=== PATIENT | male | born 1965 | race Caucasian/White ===

== ENCOUNTER → 2017-05-29 | Outpatient (CLI) | payer MEDICARE, MEDICAID ==
[~2017-05-29] VITALS: Ht 170.2 cm; Wt 100.7 kg
[~2017-05-29] MED LIST: BUSP10TA PO; CELE40TA PO; DEBR6.5S4 AU; LIDOCAINE 2% INJ 100 MG/5 ML SDV (FOR ANES.) As Ordered ONE; MIRA33504 PO; NS 1,000 ML IV ONE; PROPOFOL 500 MG/50 ML VIAL As Ordered ONE; RISP1TAB42 PO; SENN8.6C PO
--- NOTE | 2017-05-29 12:48 | ROOR ---
Patient Name: Santiago Escalera Procedure Date: 05/29/2017 12:08 PM Date of : 1965 Age: 52 Room: [facility] Gender: Male Note Status: Finalized Procedure: Colonoscopy Indications: Screening for colorectal malignant neoplasm Providers: Rory LOPEZ MD Referring MD: David Greenberg MD Requesting Provider: Medicines: Monitored Anesthesia Care Complications: No immediate complications. Procedure: Pre-Anesthesia Assessment: - The heart rate, respiratory rate, oxygen saturations, blood pressure, adequacy of pulmonary ventilation, and response to care were monitored throughout the procedure. The Colonoscope was introduced through the anus and advanced to the cecum, identified by appendiceal orifice and ileocecal valve. The colonoscopy was performed without difficulty. The patient tolerated the procedure well. The quality of the bowel preparation was good. Findings: The perianal and digital rectal examinations were normal. Two semi-pedunculated polyps were found in the sigmoid colon. The polyps were 4 to 6 mm in size. These polyps were removed with a cold snare. Resection and retrieval were complete. To prevent bleeding after the polypectomy, two hemostatic clips were successfully placed. There was no bleeding at the end of the procedure. The exam was otherwise without abnormality on direct and retroflexion views. Impression: - Two 4 to 6 mm polyps in the sigmoid colon, removed with a cold snare. Resected and retrieved. Clips were placed. - The colon examination was otherwise normal on direct and retroflexion views. Recommendation: - Repeat colonoscopy in 3 years for surveillance. Rory Lopez MD Rory LOPEZ MD 05/29/2017 12:47:40 PM This report has been signed electronically. Number of Addenda: 0 Note Initiated On: 05/29/2017 12:08 PM Estimated Blood Loss: Estimated blood loss: none.
[2017-05-29 13:10] VITALS: BP 150/85
== END | disposition home or self-care (01) ==
LOC: M OPP 11:01
PROVIDERS: ATTEND Internal Medicine Gastroenterology
DX: Z12.11 Encounter for screening for malignant neoplasm of colon (principal); D12.5 Benign neoplasm of sigmoid colon; F32.9 Major depressive disorder, single episode, unspecified; F41.9 Anxiety disorder, unspecified; G80.9 Cerebral palsy, unspecified; F79 Unspecified intellectual disabilities; Z79.899 Other long term (current) drug therapy; Z80.0 Family history of malignant neoplasm of digestive organs

== ENCOUNTER → 2017-09-19 | Outpatient (REF) | payer MEDICARE, MEDICAID ==
[~2017-09-19] MED LIST changes: -LIDOCAINE 2% INJ 100 MG/5 ML SDV (FOR ANES.) As Ordered ONE; -NS 1,000 ML IV ONE; -PROPOFOL 500 MG/50 ML VIAL As Ordered ONE
== END ==
LOC: M SFHCCLAY 09:13
PROVIDERS: ATTEND Family Medicine
DX: Z80.0 Family history of malignant neoplasm of digestive organs (principal); E78.00 Pure hypercholesterolemia, unspecified; Z53.9 Procedure and treatment not carried out, unspecified reason

== ENCOUNTER 2019-02-22 19:49 | Inpatient (IN) | payer MEDICARE, MEDICAID ==
[~2019-02-22] VITALS: Ht 167.6 cm; Wt 113.2 kg
--- NOTE | 2019-02-22 22:12 | REPVR ---
EXAM: US Duplex Right Lower Extremity Veins, Limited EXAM DATE/TIME: 02/22/2019 9:31 PM CLINICAL HISTORY: 53 years old, male; Signs and symptoms; Swelling (edema) of limb; Lower extremity, right; Additional info: R/O dvt TECHNIQUE: Imaging protocol: Real-time Duplex ultrasound of the Right Lower Extremity with 2-D keita scale, color Doppler flow and spectral waveform analysis. Limited exam was focused on the right lower extremity veins. COMPARISON: No relevant prior studies available. FINDINGS: Right deep veins: Hypoechoic, nonocclusive thrombus in the distal femoral vein, becoming occlusive in the popliteal vein. The common femoral and proximal to mid femoral veins are patent without thrombus. Right superficial veins: Unremarkable. Saphenofemoral junction is patent without thrombus. Soft tissues: Unremarkable. IMPRESSION: Hypoechoic, nonocclusive thrombus in the distal femoral vein, becoming occlusive in the popliteal vein. Electronically signed by: Gildardo Turk On 02/22/2019 22:12:44 PM
[2019-02-22 23:16] LABS: HEMATOCRIT 43.4 % (42.0-52.0); HEMOGLOBIN 13.9 g/dl (13.5-17.5); MEAN CORPUSCULAR HEMOGLOBIN 29.2 pg (27.0-33.0); MEAN CORPUSCULAR VOLUME 91.2 fl (80.0-96.0); PLATELET COUNT, AUTOMATED 252 10^3/uL (150-450); RED BLOOD COUNT 4.76 10^6/uL (4.30-6.10); WHITE BLOOD COUNT 9.1 10^3/uL (4.0-10.0)
[2019-02-22 23:26] LABS: INR 0.99; PARTIAL THROMBOPLASTIN TIME 27.9 SECONDS (25.4-37.6); PROTHROMBIN TIME 13.2 SECONDS (12.1-14.4)
[2019-02-22 23:27] LABS: BLOOD UREA NITROGEN 13 MG/DL (7-18); CALCIUM LEVEL 8.5 MG/DL (8.5-10.1); CARBON DIOXIDE LEVEL 27 MEQ/L (21-32); CHLORIDE LEVEL 110 MEQ/L (98-107); CREATININE FOR GFR 1.06 MG/DL (0.70-1.30); GLOMERULAR FILTRATION RATE > 60.0 (>56); GLUCOSE, FASTING 110 MG/DL (70-100); POTASSIUM SERUM 4.4 MEQ/L (3.5-5.1); SODIUM LEVEL 143 MEQ/L (136-145)
[2019-02-22] MEDS ORDERED: ISOVUE-370 76% 100ML VIAL (Q9967) As Ordered ONE (23:32)
[2019-02-22] MEDS ORDERED: NS IV ONE (23:45)
[2019-02-22] MEDS ORDERED: DILUENT IV ONE (23:45)
--- NOTE | 2019-02-23 00:06 | REPVR ---
EXAM: CT Angiography Chest With Contrast EXAM DATE/TIME: 02/22/2019 10:34 PM CLINICAL HISTORY: 53 years old, male; Signs and symptoms; Other: Leg swelling; Additional info: RO pe TECHNIQUE: Imaging protocol: Axial computed tomographic angiography images of the chest with intravenous contrast using CT angiography protocol. Coronal and sagittal reformatted images were created and reviewed. 3D rendering: MIP reconstructed images were created and reviewed. Radiation optimization: All CT scans at this facility use at least one of these dose optimization techniques: automated exposure control; mA and/or kV adjustment per patient size (includes targeted exams where dose is matched to clinical indication); or iterative reconstruction. Contrast material: ISO; Contrast volume: 75 ml; Contrast route: AC; COMPARISON: CR CHEST 2 VIEW 12/29/2015 9:47 AM FINDINGS: Pulmonary arteries: Contrast opacification satisfactory, although suboptimal evaluation due to respiratory motion. Nonocclusive right greater than left lower lobe and right middle lobe pulmonary emboli. Aorta: Unremarkable. No aneurysm or dissection. Lungs: Mild linear stranding and groundglass, likely due to atelectasis and/or scarring. No consolidation. No mass. Pleural space: Unremarkable. No pneumothorax. No pleural effusion. Heart: Leftward bowing of the interventricular septum, suggesting right-sided heart strain. No cardiomegaly. No pericardial effusion. Mediastinum: Small hiatal hernia. Lymph nodes: No pathologically enlarged lymph nodes. Bones/joints: No acute osseous abnormality. Mild degenerative changes. Soft tissues: Unremarkable. IMPRESSION: 1. Limited examination due to respiratory motion. 2. Bilateral pulmonary emboli with evidence of right heart strain, as described above. 3. Additional findings, as above. Electronically signed by: Gildardo Turk On 02/23/2019 00:06:34 AM
[2019-02-23 00:34] LABS: CPK CREATINE PHOSPHOKINASE 119 U/L (39-308); MB/CK RELATIVE INDEX 1.26 (< OR =4); TROPONIN I < 0.02 NG/ML (< 0.10)
[2019-02-23] MEDS ORDERED: MIRA1POW3 PO (01:22)
[2019-02-23] MEDS ORDERED: SELS1SHA7 EXT (01:22)
[2019-02-23] MEDS ORDERED: SENN-23 PO (01:22)
--- NOTE | 2019-02-23 01:47 | ECGEPIP ---
Stationary ECG Study [facility] - ED Test Date: 2019-02-23 Pat Name: JASPER WOOD Department: Room: - Gender: M Measurement Psychologist: CYNTHIA : 1965 Requested By: NICOLASA Hanna PA-C Order Number: [id number] Reading MD: Kaden Chan Measurements Intervals Odin Rate: 110 P: 8 HI: 170 QRS: 20 QRSD: 109 T: 45 QT: 340 QTc: 461 Interpretive Statements SINUS TACHYCARDIA NO PRIORS FOR COMPARISON Electronically Signed On 02-23-2019 1:47:04 EDT by Kaden Chan
[2019-02-23] MEDS ORDERED: ACETAMINOPHEN TAB 650MG DOSE (2X325MG) PO PRN (02:30)
[2019-02-23] MEDS ORDERED: MOM 30ML SUSPENSION UDC PO PRN (02:30)
[2019-02-23] MEDS ORDERED: SENOKOT S TAB PO PRN (02:30)
[2019-02-23] MEDS ORDERED: ENOXAPARIN 100MG/1ML SYRINGE (J1650) SC SCH (03:00)
--- NOTE | 2019-02-23 05:32 | HPEPDOC ---
General Date of Admission Feb 23, 2019 at 02:13 Attending Physician: Santos Beatty MD Chief Complaint The patient is a 53-year-old male admitted with a reason for visit of Pulmonary Embolism. History of Present Illness 53-year-old male who is a [facility] resident with past medical history of depression, cerebral palsy, intellectual disability presented to the ER after he was noted to have right lower extremity edema. The patient's history was limited given his underlying intellectual disability. According to the patient's pv installer tech who is at the bedside, the patient went to visit his family in the [place] area this past weekend for East. Today, when the patient was showering it was noted that his right lower extremity was bigger than his left. He did not endorse any symptoms of pain. In addition, he denied any complaints of chest pain, palpitations, shortness of breath, abdominal pain, or any lightheadedness/dizziness. Apparently, the patient is ambulatory and active at baseline, with no prolonged immobility according to his pv installer tech. He was brought to the ER for further evaluation. In the ER, a CT angiogram of the chest revealed bilateral pulmonary emboli with evidence of right heart strain. In addition, his right lower extremity revealed hypoechoic, nonocclusive thrombus in the distal femoral vein, becoming occlusive in the popliteal vein. The patient will be admitted under the service of the [facility] for further evaluation and management. Home Medications Scheduled Buspirone HCl (Buspirone HCl) 10 Mg Tab, 20 MG PO TID, (Reported) TAKES AT AM, 1630, AND HS Carbamide Peroxide (Debrox) 6.5 % Denia, 5 DROP AU 1XWK, (Reported) GIVEN ON FRIDAY AT [facility] Citalopram Hydrobromide (Celexa) 40 Mg Tab, 40 MG PO DAILY, (Reported) Polyethylene Glycol 3350 (Miralax) 17 Gm Powd.pack, 17 GM PO Q2D, (Reported) Risperidone (Risperdal) 1 Mg Tab, 1 MG PO BID, (Reported) TAKES AT AM AND 1630 Selenium Sulfide (Selsun Blue) 207 Ml Shampoo, 1 DOSE EXT ASDIRECTED, (Reported) Scheduled PRN Sennosides/Docusate Sodium (Senna-S Tablet) 1 Each Tablet, 1 TAB PO DAILY PRN for CONSTIPATION, (Reported) ONE EXTRA TABLET ON DAYS 3 AND 4 WIOUT BM Allergies Coded Allergies: No Known Allergies (Unverified , 02/22/19) Past Medical History Medical History As noted in HPI Social History * Smoker: Denies Alcohol: Denies Drugs: denies [facility] resident Review of Systems Other systems 10 pt ROS is limited given patient's underlying intellectual disability Physical Examination General Exam: Positive: Alert, Cooperative, No Acute Distress ENT Exam: Positive: Atraumatic, Mucous membr. moist/pink Neck Exam: Negative: JVD Chest Exam: Positive: Clear to auscultation, Normal air movement Heart Exam: Positive: Tachycardic, Regular Rhythm, Normal S1, Normal S2 Telemetry: Positive: Sinus Abdomen Exam: Positive: Soft; Negative: Tenderness Extremity Exam: Positive: Swelling (RLE noted to be more swollen than the LLE. No tenderness to palpation. Good distal pulses and capillary refill distally. No open wounds or drainage noted); Negative: Tenderness Vital Signs Vital Signs Date Time Temp Pulse Resp B/P (MAP) Pulse Ox O2 Delivery O2 Flow Rate FiO2 02/23/19 04:19 108 16 94 Room Air 02/23/19 04:15 144/81 (102) 02/22/19 19:50 99.1 Laboratory Data Labs 24H Laboratory Tests 2 02/22/19 22:40: Nucleated Red Blood Cells % (auto) 0.0, Anion Gap 6L, Glomerular Filtration Rate > 60.0, Blood Urea Nitrogen 13, Creatinine 1.06, Sodium Level 143, Potassium Level 4.4, Chloride Level 110H, Carbon Dioxide Level 27, Calcium Level 8.5, Total Creatine Kinase 119, Creatine Kinase MB 2.0, Creatine Kinase MB Relative Index 1.26, Troponin I < 0.02 02/22/19 22:44: Prothrombin Time 13.2, Prothromb Time International Ratio 0.99, Activated Partial Thromboplast Time 27.9, Lactic Acid Level 3.1*H CBC/BMP Laboratory Tests 02/22/19 22:40 Red Blood Count 4.76, Mean Corpuscular Volume 91.2, Mean Corpuscular Hemoglobin 29.2, Mean Corpuscular Hemoglobin Concent 32.0, Red Cell Distribution Width 13.3, Calcium Level 8.5, Total Creatine Kinase 119 Plan / VTE VTE Prophylaxis Ordered?: Yes Plan Plan B/L Pulmonary Emboli, RLE DVT CT angiogram of the chest revealed bilateral pulmonary emboli with evidence of right heart strain. Patient is w/o complaints of chest pain, palpitations, hemodynamically stable, and saturating well on room air. 2D ECHO ordered for right heart strain noted on imaging Lovenox SC BID ordered Hypercoagulable work up ordered Patient should also undergo cancer screening as per USPSTF guidelines to assess for underlying malignancy given extensive clots and no other obvious risk factors. RLE DVT Right lower extremity US revealed hypoechoic, nonocclusive thrombus in the distal femoral vein, becoming occlusive in the popliteal vein. Cont AC as noted above Extremity neurovascularly intact distally with no acute concerns Consider vascular surgery consultation if his RLE edema worsens. Anxiety/Depression Cont Meds as ordered Intellectual Disability Complicating medical care [facility] resident DVT Prophylaxis Lovenox The patient will be admitted under the service of the [facility], who will begin to follow the patient on 02/23/19 at 7 AM. NEIDA GRAVES MD Feb 23, 2019 05:32
[2019-02-23 07:26] LABS: BASO % 0.5 % (0.0-1.0); EOS % 0.2 % (0.0-3.0); HEMATOCRIT 39.3 % (42.0-52.0); HEMOGLOBIN 12.8 g/dl (13.5-17.5); LYMPH # 1.4 10^3/uL (1.5-4.5); MEAN CORPUSCULAR HEMOGLOBIN 29.3 pg (27.0-33.0); MEAN CORPUSCULAR HGB CONC 32.6 g/dl (32.0-36.5); MEAN CORPUSCULAR VOLUME 89.9 fl (80.0-96.0); MONO # 0.6 10^3/uL (0.0-0.8); MONO % 6.9 % (0.0-5.0); NEUTROPHILS # 6.7 10^3/uL (1.8-7.7); NEUTROPHILS % 75.8 % (36.0-66.0); PLATELET COUNT, AUTOMATED 248 10^3/uL (150-450); RED BLOOD COUNT 4.37 10^6/uL (4.30-6.10); WHITE BLOOD COUNT 8.9 10^3/uL (4.0-10.0)
[2019-02-23 07:33] LABS: BLOOD UREA NITROGEN 10 MG/DL (7-18); C REACTIVE PROTEIN QUANTITATIV 0.38 MG/DL (0.00-0.30); CALCIUM LEVEL 7.7 MG/DL (8.5-10.1); CARBON DIOXIDE LEVEL 24 MEQ/L (21-32); CHLORIDE LEVEL 112 MEQ/L (98-107); GLOMERULAR FILTRATION RATE > 60.0 (>56); GLUCOSE, FASTING 98 MG/DL (70-100); POTASSIUM SERUM 4.1 MEQ/L (3.5-5.1); SODIUM LEVEL 142 MEQ/L (136-145)
[2019-02-23 07:47] LABS: INR 1.12; PROTHROMBIN TIME 14.6 SECONDS (12.1-14.4)
[2019-02-23 07:48] LABS: PARTIAL THROMBOPLASTIN TIME 36.4 SECONDS (25.4-37.6)
[2019-02-23] MEDS: risperiDONE 1 MG TAB PO SCH ×2 (08:38→20:28)
[2019-02-23] MEDS: CitaloPRAM (CeleXA) 20 MG TAB PO SCH (08:38)
[2019-02-23] MEDS: busPIRone 10 MG TAB PO SCH ×3 (08:39→20:28)
[2019-02-23 10:48] LABS: DRVV SCREEN 45.6 SEC
[2019-02-23 10:49] LABS: PTT LUPUS TYPE ANTICOAG SCREEN 1.1 (0-1.2)
[2019-02-23] MEDS ORDERED: XARE15TA PO (11:17)
--- NOTE | 2019-02-23 11:17 | IPNPDOC ---
Subjective Date Seen The patient was seen on 02/23/19. Subjective Chief Complaint/HPI PE/DVT Events since last encounter Admitted for Bilateral PE and RLE DVT> Started on Lovenox SQ. Denies c/o. + Right sided heart strain on CT chest. Echo pending. non-oxygen dependent. Pulmonary: Denies: Dyspnea, Cough Cardiovascular: Reports: Edema (RLE); Denies: Chest Pain, Palpitations, Orthopnea, Paroxysmal Noc. Dyspnea, Lt Headedness Gastrointestinal: Denies: Nausea, Vomiting, Abdominal Pain, Diarrhea, Constipation Psych: Reports: Mood Normal; Denies: Depression, Memory Issues Objective Physical Examination General Exam: Positive: Alert, Cooperative, No Acute Distress ENT Exam: Positive: Atraumatic, Mucous membr. moist/pink Neck Exam: Negative: JVD Chest Exam: Positive: Clear to auscultation, Normal air movement Heart Exam: Positive: Tachycardic, Regular Rhythm, Normal S1, Normal S2 Telemetry: Positive: Sinus Abdomen Exam: Positive: Soft; Negative: Tenderness Extremity Exam: Positive: Swelling (RLE noted to be more swollen than the LLE. No tenderness to palpation. Good distal pulses and capillary refill distally. No open wounds or drainage noted); Negative: Tenderness Psych Exam: Positive: Mental status NL, Mood NL, Oriented x 3 Assessment /Plan Problems (1) Pulmonary embolism Status: Acute Problem Text: With right sided heart strain on CT scan. echo ordered and pending. Started on Xarelto 15 mg po bid. Rx sent to pharmacy for PA completion prior to anticipated DC home in next 1-3 days. (2) Elevated blood pressure reading with diagnosis of hypertension Status: Acute Discussed With: Nurse, Patient, Health Care Proxy Problem Specific Plan: Monitor Clinically Problem Text: I suspect this is from his right heart strain. I gave him a one- time dose of carvedilol 6.25 mg to see if this helps bring his pressure down a little. He may need to repeat or even make this a routine medication depending on how things go. (3) Development delay Status: Chronic Response to Treatment: Stable Problem Text: [facility] resident. continue current medications. His intellectual disability does complicate his care. Plan/VTE VTE Prophylaxis Ordered?: Yes (formally anticoagulated on rivoroxaban) Plan Family Medicine Attending Note: I saw and examined Mr. Escalera, discussed with Viry Alberry, [employer]. Agree with her note as documented. Mr. escalera is doing quite well clinically. He does have a swollen right lower extremity. I've asked nursing to measures at least once a shift to make sure that is not getting larger. If that does happen we may need to consider having vascular surgery address his right DVT. Otherwise he has been started on rivoroxaban and he will take this for both his PE and DVT. He has an echocardiogram scheduled and it is pending today. If he does well overnight, I think it's reasonable he may be discharged tomorrow on the rivoroxaban. 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) VS, I&O, 24H, Fishbone Vital Signs/I&O Vital Signs Date Time Temp Pulse Resp B/P (MAP) Pulse Ox O2 Delivery O2 Flow Rate FiO2 02/23/19 08:30 99.0 124 141/90 (107) 95 Room Air 02/23/19 06:15 16 I&O- Last 24 Hours up to 6 AM 02/23/19 06:00 Intake Total 3140 ml Balance 3140 ml Laboratory Data 24H LABS Laboratory Tests 2 02/22/19 22:40: Nucleated Red Blood Cells % (auto) 0.0, Anion Gap 6L, Glomerular Filtration Rate > 60.0, Blood Urea Nitrogen 13, Creatinine 1.06, Sodium Level 143, Potassium Level 4.4, Chloride Level 110H, Carbon Dioxide Level 27, Calcium Level 8.5, Total Creatine Kinase 119, Creatine Kinase MB 2.0, Creatine Kinase MB Relative Index 1.26, Troponin I < 0.02 02/22/19 22:44: Prothrombin Time 13.2, Prothromb Time International Ratio 0.99, Activated Partial Thromboplast Time 27.9, Lactic Acid Level 3.1*H 02/23/19 06:52: Nucleated Red Blood Cells % (auto) 0.0, Anion Gap 6L, Glomerular Filtration Rate > 60.0, Blood Urea Nitrogen 10, Creatinine 0.80, Sodium Level 142, Potassium Level 4.1, Chloride Level 112H, Carbon Dioxide Level 24, Calcium Level 7.7L, Prothrombin Time 14.6H, Prothromb Time International Ratio 1.12, Activated Partial Thromboplast Time 36.4, Immature Granulocyte % (Auto) 0.6, White Blood Count 8.9, Red Blood Count 4.37, Hemoglobin 12.8L, Hematocrit 39.3L, Mean Corpuscular Volume 89.9, Mean Corpuscular Hemoglobin 29.3, Mean Corpuscular Hemoglobin Concent 32.6, Red Cell Distribution Width 13.4, Platelet Count 248, Neutrophils (%) (Auto) 75.8H, Lymphocytes (%) (Auto) 16.0L, Monocytes (%) (Auto) 6.9H, Eosinophils (%) (Auto) 0.2, Basophils (%) (Auto) 0.5, Neutrophils # (Auto) 6.7, Lymphocytes # (Auto) 1.4L, Monocytes # (Auto) 0.6, Eosinophils # (Auto) 0.0, Basophils # (Auto) 0.0, Lupus Anticoag DRVVT Screen Ratio 1.1, Lactic Acid Followup at 4 Hours 2.8*H, C-Reactive Protein, Quantitative 0.38H CBC/BMP Laboratory Tests 02/22/19 22:40 Red Blood Count 4.76, Mean Corpuscular Volume 91.2, Mean Corpuscular Hemoglobin 29.2, Mean Corpuscular Hemoglobin Concent 32.0, Red Cell Distribution Width 13.3, Calcium Level 8.5, Total Creatine Kinase 119 02/23/19 06:52 Red Blood Count 4.37, Mean Corpuscular Volume 89.9, Mean Corpuscular Hemoglobin 29.3, Mean Corpuscular Hemoglobin Concent 32.6, Red Cell Distribution Width 13.4, Calcium Level 7.7 L, Neutrophils (%) (Auto) 75.8 H, Lymphocytes (%) (Auto) 16.0 L, Monocytes (%) (Auto) 6.9 H, Eosinophils (%) (Auto) 0.2, Basophils (%) (A uto) 0.5, Neutrophils # (Auto) 6.7, Lymphocytes # (Auto) 1.4 L, Monocytes # (Auto) 0.6, Eosinophils # (Auto) 0.0, Basophils # (Auto) 0.0 Viry Rosa Feb 23, 2019 11:17 Santos Beatty MD Feb 23, 2019 16:12
[2019-02-23 14:27] LABS: ERYTHROCYTE SEDIMENTATION RATE 6 mm/hr (0-20)
[2019-02-23] MEDS ORDERED: CARVedilol 6.25 MG TAB PO ONE (15:30)
[2019-02-23 15:35] VITALS: BP 178/92
[2019-02-23 15:59] VITALS: BP 178/92
[2019-02-23] MEDS ORDERED: RIVAROXABAN 15 MG TAB (XARELTO) PO ONE (17:00)
[2019-02-23 20:00] VITALS: BP 172/94
[2019-02-24] VITALS (7 sets, daily range): BP systolic 116–132; BP diastolic 72–88
[2019-02-24] MEDS: CitaloPRAM (CeleXA) 20 MG TAB PO SCH (09:11)
[2019-02-24] MEDS: RIVAROXABAN 15 MG TAB (XARELTO) PO SCH ×2 (09:11→18:16)
[2019-02-24] MEDS: busPIRone 10 MG TAB PO SCH ×3 (09:12→21:05)
[2019-02-24] MEDS: risperiDONE 1 MG TAB PO SCH ×2 (09:17→21:05)
--- NOTE | 2019-02-24 09:52 | IPNPDOC ---
Subjective Date Seen The patient was seen on 02/24/19. Subjective Chief Complaint/HPI PE, DVT Events since last encounter Cleared PT. Calf circumference down from 48 inches on 02/23 to 46 inches today. Stated Xarelto. Echo pending. tele unremarkable. Skin: Denies: Rash, Lesions, Breakdown Pulmonary: Denies: Dyspnea, Cough Cardiovascular: Denies: Chest Pain, Palpitations, Orthopnea, Paroxysmal Noc. Dyspnea, Lt Headedness Gastrointestinal: Denies: Nausea, Vomiting, Abdominal Pain, Diarrhea, Constipation Objective Physical Examination General Exam: Positive: Alert, Cooperative, No Acute Distress ENT Exam: Positive: Atraumatic, Mucous membr. moist/pink Neck Exam: Negative: JVD Chest Exam: Positive: Clear to auscultation, Normal air movement Heart Exam: Positive: Tachycardic, Regular Rhythm, Normal S1, Normal S2 Telemetry: Positive: Sinus Abdomen Exam: Positive: Soft; Negative: Tenderness Extremity Exam: Positive: Swelling (RLE noted to be more swollen than the LLE. No tenderness to palpation. Good distal pulses and capillary refill distally. No open wounds or drainage noted); Negative: Tenderness Psych Exam: Positive: Mental status NL, Mood NL A-FIB/CHADSVASC A-FIB History Current/History of A-Fib/PAF?: No Current Oral Anticoagulant The: Yes Assessment /Plan Problems (1) Pulmonary embolism Status: Acute Problem Text: 02/24/19: Continue Xarelto. Echo pending. Anticipate DC today/tomorrow pending echo results. With right sided heart strain on CT scan. echo ordered and pending. Started on Xarelto 15 mg po bid. Rx sent to pharmacy for PA completion prior to anticipated DC home in next 1-3 days. (2) Elevated blood pressure reading with diagnosis of hypertension Status: Acute Discussed With: Nurse, Patient, Health Care Proxy Problem Specific Plan: Monitor Clinically Problem Text: His blood pressure has improved with just a single dose of carvedilol. Continue to monitor. (3) Development delay Status: Chronic Response to Treatment: Stable Problem Text: [facility] resident. continue current medications. His intellectual disability does complicate his care. Plan/VTE VTE Prophylaxis Ordered?: Yes (formally anticoagulated on rivoroxaban) Plan Family Medicine Attending Note: I saw and examined Mr. Escalera, discussed with GITA Dhaliwal. Agree with her note as documented. Oddly this afternoon he had an elevated lactate. It was called to me because it was a critical value. I came and reassess the patient. There are absolutely no signs of pending sepsis or overwhelming infection. When I further questioned nursing on the way the lab was drawn, I found out that the patient was very tense because of the needle. He had been clenching his muscles the entire time while his blood was being drawn and the lactate level was the last one drawn. I suspect that this explains why he had this and usually elevated lactate level. We'll recheck in the morning. 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
[2019-02-24 14:12] LABS: HEMATOCRIT 42.6 % (42.0-52.0); HEMOGLOBIN 13.8 g/dl (13.5-17.5); MEAN CORPUSCULAR HEMOGLOBIN 29.4 pg (27.0-33.0); MEAN CORPUSCULAR HGB CONC 32.4 g/dl (32.0-36.5); MEAN CORPUSCULAR VOLUME 90.6 fl (80.0-96.0); PLATELET COUNT, AUTOMATED 277 10^3/uL (150-450); WHITE BLOOD COUNT 11.5 10^3/uL (4.0-10.0)
[2019-02-24 14:30] LABS: BLOOD UREA NITROGEN 12 MG/DL (7-18); CALCIUM LEVEL 8.4 MG/DL (8.5-10.1); CARBON DIOXIDE LEVEL 22 MEQ/L (21-32); CHLORIDE LEVEL 110 MEQ/L (98-107); CREATININE FOR GFR 1.15 MG/DL (0.70-1.30); GLOMERULAR FILTRATION RATE > 60.0 (>56); GLUCOSE, FASTING 79 MG/DL (70-100); POTASSIUM SERUM 4.2 MEQ/L (3.5-5.1); SODIUM LEVEL 143 MEQ/L (136-145)
[2019-02-25 00:07] LABS: CARDIOLIPIN IGA ANTIBODY <9 APL U/mL (0-11); CARDIOLIPIN IGG ANTIBODY <9 GPL U/mL (0-14); CARDIOLIPIN IGM ANTIBODY 10 MPL U/mL (0-12); HOMOCYST(E)INE SERUM 8.9 umol/L (0.0-15.0)
[2019-02-25 04:00] VITALS: BP 121/65
[2019-02-25 06:21] LABS: HEMATOCRIT 38.7 % (42.0-52.0); HEMOGLOBIN 12.7 g/dl (13.5-17.5); MEAN CORPUSCULAR HEMOGLOBIN 29.3 pg (27.0-33.0); MEAN CORPUSCULAR HGB CONC 32.8 g/dl (32.0-36.5); MEAN CORPUSCULAR VOLUME 89.2 fl (80.0-96.0); PLATELET COUNT, AUTOMATED 224 10^3/uL (150-450); RED BLOOD COUNT 4.34 10^6/uL (4.30-6.10)
[2019-02-25 06:44] LABS: BLOOD UREA NITROGEN 13 MG/DL (7-18); CALCIUM LEVEL 8.1 MG/DL (8.5-10.1); CARBON DIOXIDE LEVEL 26 MEQ/L (21-32); CHLORIDE LEVEL 111 MEQ/L (98-107); GLOMERULAR FILTRATION RATE > 60.0 (>56); GLUCOSE, FASTING 85 MG/DL (70-100); POTASSIUM SERUM 4.3 MEQ/L (3.5-5.1); SODIUM LEVEL 143 MEQ/L (136-145)
[2019-02-25 08:00] VITALS: BP 145/83
[2019-02-25] MEDS: RIVAROXABAN 15 MG TAB (XARELTO) PO SCH ×2 (08:59→17:40)
[2019-02-25] MEDS: risperiDONE 1 MG TAB PO SCH ×2 (08:59→20:07)
[2019-02-25] MEDS: busPIRone 10 MG TAB PO SCH ×3 (08:59→20:07)
[2019-02-25] MEDS: CitaloPRAM (CeleXA) 20 MG TAB PO SCH (08:59)
[2019-02-25 12:02] VITALS: BP 102/62
--- NOTE | 2019-02-25 13:49 | ECHO ---
DATE OF PROCEDURE: 02/24/2019 DATE OF : 1965 AGE: 53 REFERRING PROVIDER: Dr. Deyvi Shaikh PATIENT LOCATION: Room 3225 REASON FOR THE ECHOCARDIOGRAM: Edema. 2D MEASUREMENTS: IVS: LV: 3.2 cm LVPW: 1.4 cm LA: 3.1 cm Aorta: 3.6 cm IVC: 1.2 cm DOPPLER MEASUREMENTS: Peak velocity across the aortic valve: 0.98 m/s Peak velocity across the LVOT: 0.93 m/s Mitral E: 0.94 2D COMMENTS: 1. Mildly increased left ventricular wall thickness with normal left ventricular size and normal global left ventricular systolic function. The estimated global left ventricular systolic ejection fraction is 60-65%. 2. Normal left atrium. The right atrium and the right ventricle were not well visualized, but appeared to be normal in limited views. 3. Normal aortic root. 4. Trace to small pericardial effusion noted in limited views, no evidence of cardiac tamponade. 5. Normal aortic valve. There was mildly calcified mitral annulus, the anterior mitral valve leaflet motion seems to be normal. Normal tricuspid valve. The pulmonic valve and proximal pulmonary artery branches were not well visualized. 6. The inferior vena cava was normal in size, central venous pressure is most likely normal. DOPPLER: No significant valvular abnormalities detected. Abnormal relaxation pattern was noted across the mitral valve leaflets as well as mitral valve annulus consistent with a delayed relaxation, features of grade 1 left ventricular diastolic dysfunction. IMPRESSION: 1. Normal global left ventricular systolic function with mild concentric left ventricular hypertrophy. There are some features of left ventricular diastolic dysfunction, impaired relaxation. 2. Trace to small pericardial effusion, no evidence of cardiac tamponade. 3. The right heart chambers were not well visualized. 4. Mild sinus tachycardia was noted during the test. 5. The study was technically limited due to poor acoustic window.
[2019-02-25 14:12] LABS: ANTI THROMBIN 3 ANTIGEN IMMUNO 68 % (72-124); ANTI THROMBIN 3 FUNCT ACTIVITY 90 % (75-135); PROTEIN C ANTIGEN 81 % (60-150); PROTEIN S ANTIGEN FREE 102 % (57-157); PROTEIN S ANTIGEN TOTAL 74 % (60-150)
[2019-02-25] MEDS ORDERED: SLF 3 ML SYR IV PRN ×2 (14:45→15:00)
[2019-02-25 16:00] VITALS: BP 127/69
--- NOTE | 2019-02-25 17:22 | IPNPDOC ---
Subjective Date Seen The patient was seen on 02/25/19. Subjective Chief Complaint/HPI Santiago has been comfortable today. No problems are noted or reported. General: Reports: ROS Unobtainable Objective Physical Examination General Exam: Positive: Alert, Cooperative, No Acute Distress Eye Exam: Negative: Sclera icteric ENT Exam: Positive: Atraumatic, Mucous membr. moist/pink Neck Exam: Negative: Lymphadenopathy Chest Exam: Positive: Clear to auscultation, Normal air movement Heart Exam: Positive: Tachycardic, Regular Rhythm, Normal S1, Normal S2 Telemetry: Positive: Sinus Abdomen Exam: Positive: Soft; Negative: Tenderness Extremity Exam: Positive: Swelling (RLE noted to be more swollen than the LLE. No tenderness to palpation. Good distal pulses and capillary refill distally. No open wounds or drainage noted); Negative: Tenderness Psych Exam: Positive: Mental status NL, Mood NL A-FIB/CHADSVASC A-FIB History Current/History of A-Fib/PAF?: No Assessment /Plan Problems (1) Pulmonary embolism Status: Acute Problem Text: 02/25: He continues to do well on the Xarelto. No bleeding noted. The echo had been acquired but not read this morning. I did get the report later this afternoon, however by the time I was ready to discharge him (which I attempted to do) no one was able to take him to [facility] residence. He will need to be discharged tomorrow. 02/24/19: Continue Xarelto. Echo pending. Anticipate DC today/tomorrow pending echo results. With right sided heart strain on CT scan. echo ordered and pending. Started on Xarelto 15 mg po bid. Rx sent to pharmacy for PA completion prior to anticipated DC home in next 1-3 days. (2) Elevated blood pressure reading with diagnosis of hypertension Status: Acute Discussed With: Nurse, Patient, Health Care Proxy Problem Specific Plan: Monitor Clinically Problem Text: His blood pressure remains well controlled. His echo shows some evidence of left heart hypertrophy, but not enough to cause significant problems at this point in time. No further treatment is needed. (3) Development delay Status: Chronic Response to Treatment: Stable Problem Text: [facility] resident. continue current medications. His intellectual disability does complicate his care. Plan/VTE VTE Prophylaxis Ordered?: Yes (formally anticoagulated on rivoroxaban) Plan Anticipated Discharge: Other Anticipated D/C (to [facility] tomorrow) VS, I&O, 24H, Fishbone Vital Signs/I&O Vital Signs Date Time Temp Pulse Resp B/P (MAP) Pulse Ox O2 Delivery O2 Flow Rate FiO2 02/25/19 16:00 98.8 94 20 127/69 (88) 88 02/23/19 14:45 Room Air I&O- Last 24 Hours up to 6 AM 02/25/19 06:00 Intake Total 1320 ml Output Total 950 ml Balance 370 ml Laboratory Data 24H LABS Laboratory Tests 2 02/24/19 18:42: Lactic Acid Followup at 4 Hours 2.9*H 02/25/19 05:54: Nucleated Red Blood Cells % (auto) 0.0, Anion Gap 6L, Glomerular Filtration Rate > 60.0, Blood Urea Nitrogen 13, Creatinine 0.90, Sodium Level 143, Potassium Level 4.3, Chloride Level 111H, Carbon Dioxide Level 26, Calcium Level 8.1L CBC/BMP Laboratory Tests 02/25/19 05:54 Red Blood Count 4.34, Mean Corpuscular Volume 89.2, Mean Corpuscular Hemoglobin 29.3, Mean Corpuscular Hemoglobin Concent 32.8, Red Cell Distribution Width 13.5, Calcium Level 8.1 L Santos Beatty MD Feb 25, 2019 17:22
[2019-02-25 20:00] VITALS: BP 136/75
[2019-02-25] MEDS: SLF 3 ML SYR IV SCH (20:07)
[2019-02-25] MEDS ORDERED: SLF 3 ML SYR IV SCH (22:00)
[2019-02-25 23:59] VITALS: BP 116/72
[2019-02-26 04:00] VITALS: BP 130/78
[2019-02-26] MEDS: SLF 3 ML SYR IV SCH (04:00)
[2019-02-26 08:00] VITALS: BP 123/69
[2019-02-26] MEDS: busPIRone 10 MG TAB PO SCH (08:41)
[2019-02-26] MEDS: RIVAROXABAN 15 MG TAB (XARELTO) PO SCH (08:41)
[2019-02-26] MEDS: risperiDONE 1 MG TAB PO SCH (08:41)
[2019-02-26] MEDS: CitaloPRAM (CeleXA) 20 MG TAB PO SCH (08:41)
[2019-02-26 12:00] VITALS: BP 120/73
--- NOTE | 2019-02-27 15:52 | DSES ---
DATE OF ADMISSION: 02/23/2019 DATE OF DISCHARGE: 02/26/2019 BRIEF HISTORY AND PHYSICAL: The patient is a 53-year-old [facility] ([facility]) resident, patient of Dr. Greenberg, who according to the patient's caregiver went to visit his family in [place] over the weekend. When they were showering the patient, they noticed his right leg was bigger than his left. The patient did not complain of any pain or shortness of breath. He has not had any changes in activity level or prolonged immobility. In the emergency room (ER), a CT angiogram of the chest revealed bilateral pulmonary emboli with evidence of right heart strain as well as right lower extremity edema with an ultrasound showing nonocclusive thrombus in the distal femoral vein, becoming occlusive in the popliteal vein. PAST MEDICAL HISTORY: Significant for: 1. Depression. 2. Cerebral palsy. 3. Intellectual disability. PERTINENT LABORATORIES ON ADMISSION: White count 9, hemoglobin 13.9, platelets 252,000. Sodium 143, potassium 4.4, BUN 13, creatinine 1.0. CIP troponin negative. PT/PTT were normal. Ultrasound and CT angiogram discussed above. HOSPITAL COURSE: The patient was admitted for right lower extremity deep vein thrombosis (DVT) and bilateral pulmonary emboli. Initially started on therapeutic Lovenox but switched to Xarelto, which has been sent to his pharmacy and is covered. He is tolerating this without any signs of bleeding. Hemoglobin has been fairly stable. His Xarelto will be continued. We did start a hypercoagulability workup, the results of which are pending. Also, the etiology of his DVT/pulmonary embolism (PE) is uncertain. Depending on the results of a hypercoagulability workup, if they are negative, we also may want to pursue a routine [place] Preventative Services Task Force (USPSTF) recommendation screening for various cancers as an underlying etiology if felt appropriate in this patient. Otherwise, his usual medications have been the same as prior to admission, and patient is stable for discharge back to [facility]. His diet as tolerated. Activity as tolerated. MEDICATIONS: - Xarelto 15 mg twice a day - BuSpar 20 mg three times a day - Debrox 5 drops both ears once a week - Celexa 40 mg daily - MiraLax 17 grams every 2 days - Risperdal 1 mg twice a day - Selsun Blue as directed - senna-S one tablet as needed for constipation DISCHARGE DIAGNOSES: 1. Bilateral pulmonary emboli. 2. Right lower extremity deep vein thrombosis 3. Depression. 4. Cerebral plasy.
[2019-03-01 14:17] LABS: ANCA-ATYPICAL <1:20 titer (Neg:<1:20); ANTINUCLEAR ANTIBODIES DIRECT Negative (Negative); CYTOPLASMIC NEUTROP AB ANCA-C <1:20 titer (Neg:<1:20); PERINUCLEAR AB ANCA-P <1:20 titer (Neg:<1:20); SJOGREN'S ANTI SS-A <0.2 AI (0.0-0.9); SJOGREN'S ANTI SS-B <0.2 AI (0.0-0.9)
== END 2019-02-26 13:25 | disposition home or self-care (01) | DRG 299 ==
LOC: M ED 19:49 → M ED INP 02-23 02:13 → M PCU 02-23 15:07
PROVIDERS: ADMIT Internal Medicine; ATTEND Family Medicine
DX: I82.411 Acute embolism and thrombosis of right femoral vein (principal); I26.99 Other pulmonary embolism without acute cor pulmonale; G80.9 Cerebral palsy, unspecified; F32.9 Major depressive disorder, single episode, unspecified; F79 Unspecified intellectual disabilities; Z79.899 Other long term (current) drug therapy; F41.9 Anxiety disorder, unspecified; R03.0 Elevated blood-pressure reading, without diagnosis of hypertension

== ENCOUNTER 2019-03-02 19:11 | Emergency (ER) | payer MEDICARE, MEDICAID ==
[~2019-03-02] VITALS: Ht 167.6 cm; Wt 102.8 kg
[~2019-03-02 19:11] MED LIST changes: +MIRA1POW3 PO; +SELS1SHA7 EXT; +SENN-23 PO; +XARE15TA PO
[2019-03-02 19:12] VITALS: BP 132/75
== END 2019-03-02 20:12 | disposition home or self-care (01) ==
LOC: M ED 19:11
DX: I82.411 Acute embolism and thrombosis of right femoral vein (principal); I82.431 Acute embolism and thrombosis of right popliteal vein; F79 Unspecified intellectual disabilities; Z79.899 Other long term (current) drug therapy; Z79.01 Long term (current) use of anticoagulants

== ENCOUNTER 2019-03-10 19:47 | Emergency (ER) | payer MEDICARE, MEDICAID ==
[~2019-03-10] VITALS: Ht 167.6 cm; Wt 103.0 kg
[2019-03-10] MEDS ORDERED: EMLA CREAM 5GM (LIDOCAINE/PRILOCAINE) TOP ONE (21:00)
[2019-03-10 22:12] VITALS: BP 121/78
== END 2019-03-10 22:30 | disposition home or self-care (01) ==
LOC: M ED 19:47
DX: R23.3 Spontaneous ecchymoses (principal); F79 Unspecified intellectual disabilities; Z79.899 Other long term (current) drug therapy; Z79.01 Long term (current) use of anticoagulants

== ENCOUNTER 2020-08-19 17:23 | Emergency (ER) | payer MEDICARE, MEDICAID ==
[~2020-08-19] VITALS: Ht 167.6 cm; Wt 108.8 kg
--- NOTE | 2020-08-19 18:09 | REPVR ---
PROCEDURE INFORMATION: Exam: CT Head Without Contrast Exam date and time: 08/19/2020 5:37 PM Age: 55 years old Clinical indication: Injury or trauma; Fall; Blunt trauma (contusions or hematomas) TECHNIQUE: Imaging protocol: Computed tomography of the head without contrast. Axial and coronal reformatted images were created and reviewed. Radiation optimization: All CT scans at this facility use at least one of these dose optimization techniques: automated exposure control; mA and/or kV adjustment per patient size (includes targeted exams where dose is matched to clinical indication); or iterative reconstruction. COMPARISON: No relevant prior studies available. FINDINGS: Brain: No CT evidence of acute intracranial hemorrhage or acute territorial infarction. No significant mass effect or midline shift. Basal cisterns patent. Cerebral ventricles: Prominence of the cortical sulci, cisterns and ventricular system, consistent with cerebral and cerebellar volume loss. Bones/joints: No acute osseous abnormality. Paranasal sinuses: Mild polypoid right maxillary sinus mucosal thickening. No fluid levels. Mastoid air cells: Grossly unremarkable. Soft tissues: Grossly unremarkable. IMPRESSION: 1. No CT evidence of acute intracranial pathology. 2. Additional findings, as above. Electronically signed by: Gildardo Turk On 08/19/2020 18:09:45 PM
--- NOTE | 2020-08-19 18:12 | REPVR ---
PROCEDURE INFORMATION: Exam: CT Cervical Spine Without Contrast Exam date and time: 08/19/2020 5:37 PM Age: 55 years old Clinical indication: Injury or trauma; Fall; Blunt trauma TECHNIQUE: Imaging protocol: Computed tomography images of the cervical spine without contrast. Axial, coronal and sagittal reformatted images were created and reviewed. Radiation optimization: All CT scans at this facility use at least one of these dose optimization techniques: automated exposure control; mA and/or kV adjustment per patient size (includes targeted exams where dose is matched to clinical indication); or iterative reconstruction. COMPARISON: No relevant prior studies available. FINDINGS: Vertebrae: Osteopenia. Normal cervical lordosis. Alignment anatomic. No CT evidence of acute fracture, dislocation or subluxation. Vertebral body heights maintained. Discs/Spinal canal/Neural foramina: Mild multilevel degenerative changes, characterized by disc space narrowing, osteophytosis and uncovertebral and facet joint hypertrophy. Mild multilevel spinal canal and neural foraminal narrowing. Soft tissues: Grossly unremarkable. Lungs: Grossly unremarkable. IMPRESSION: 1. No CT evidence of acute cervical spine traumatic injury. 2. Additional findings, as above. Electronically signed by: Gildardo Turk On 08/19/2020 18:12:54 PM
--- NOTE | 2020-08-19 18:37 | REPVR ---
PROCEDURE INFORMATION: Exam: XR Chest, 2 Views Exam date and time: 08/19/2020 6:24 PM Age: 55 years old Clinical indication: Chest pain; Type not specified; Additional info: Trauma TECHNIQUE: Imaging protocol: XR of the chest Views: 2 views. COMPARISON: CT ANGIO CHEST 02/22/2019 11:29 PM FINDINGS: Lungs: Shallow inspiration. No consolidation. Pleural space: Unremarkable. No pleural effusion. No pneumothorax. Heart/Mediastinum: Unremarkable. No cardiomegaly. Bones/joints: No acute osseous abnormality. Mild degenerative changes of the spine. IMPRESSION: No acute radiographic findings. Electronically signed by: Gildardo Turk On 08/19/2020 18:37:41 PM
[2020-08-19] MEDS ORDERED: NS 1,000 ML IV ONE (18:45)
[2020-08-19 20:13] LABS: BASO % 0.5 % (0.0-1.0); EOS % 0.6 % (0.0-3.0); HEMATOCRIT 42.3 % (42.0-52.0); HEMOGLOBIN 13.6 g/dl (13.5-17.5); LYMPH # 1.5 10^3/uL (1.5-5.0); LYMPH % 23.3 % (24.0-44.0); MEAN CORPUSCULAR HEMOGLOBIN 28.5 pg (27.0-33.0); MEAN CORPUSCULAR HGB CONC 32.2 g/dl (32.0-36.5); MEAN CORPUSCULAR VOLUME 88.7 fl (80.0-96.0); MONO # 0.6 10^3/uL (0.0-0.8); MONO % 9.6 % (0.0-5.0); NEUTROPHILS # 4.3 10^3/uL (1.5-8.5); NEUTROPHILS % 65.5 % (36.0-66.0); PLATELET COUNT, AUTOMATED 203 10^3/uL (150-450); RED BLOOD COUNT 4.77 10^6/uL (4.30-6.10); WHITE BLOOD COUNT 6.6 10^3/uL (4.0-10.0)
[2020-08-19 20:22] LABS: INR 1.12; PROTHROMBIN TIME 14.7 SECONDS (12.5-14.3)
[2020-08-19 20:23] LABS: PARTIAL THROMBOPLASTIN TIME 29.2 SECONDS (24.2-38.5)
[2020-08-19 20:53] LABS: ALBUMIN 3.7 GM/DL (3.2-5.2); ALT/SGPT 60 U/L (12-78); BILIRUBIN,DIRECT 0.1 MG/DL (0.0-0.2); BILIRUBIN,TOTAL 0.5 MG/DL (0.2-1.0); BLOOD UREA NITROGEN 14 MG/DL (7-18); CALCIUM LEVEL 8.5 MG/DL (8.5-10.1); CARBON DIOXIDE LEVEL 29 MEQ/L (21-32); CHLORIDE LEVEL 107 MEQ/L (98-107); CK-MB VALUE MASS 1.5 NG/ML (<3.6); CPK CREATINE PHOSPHOKINASE 214 U/L (39-308); CREATININE FOR GFR 1.03 MG/DL (0.70-1.30); GLOMERULAR FILTRATION RATE > 60.0 (>56); GLUCOSE, FASTING 111 MG/DL (70-100); POTASSIUM SERUM 4.2 MEQ/L (3.5-5.1); SODIUM LEVEL 141 MEQ/L (136-145); TOTAL PROTEIN 6.7 GM/DL (6.4-8.2); TROPONIN I < 0.02 NG/ML (< 0.10)
[2020-08-19 21:01] VITALS: BP 152/88
--- NOTE | 2020-08-20 20:45 | ECGEPIP ---
[facility] - ED Test Date: 2020-08-19 Pat Name: JASPER WOOD Department: Room: - Gender: Male 3D Artist: conchis : 1965 Requested By: RENEE Davalos Order Number: [id number] Reading MD: Neelima Dominguez Measurements Intervals [place] Rate: 108 P: 53 [place]: 159 QRS: 35 QRSD: 107 T: 33 QT: 333 QTc: 448 Interpretive Statements SINUS TACHYCARDIA IVCD ABNORMAL RHYTHM ECG SIMILAR 02/23/19 Electronically Signed on 08-20-2020 20:44:49 EDT by Neelima Dominguez
== END 2020-08-19 21:15 | disposition home or self-care (01) ==
LOC: M ED 17:23
DX: S09.90XA Unspecified injury of head, initial encounter (principal); W01.10XA Fall on same level from slipping, tripping and stumbling with subsequent striking against unspecified object, initial encounter; Y92.099 Unspecified place in other non-institutional residence as the place of occurrence of the external cause; Y93.9 Activity, unspecified; R00.0 Tachycardia, unspecified; M85.80 Other specified disorders of bone density and structure, unspecified site; F72 Severe intellectual disabilities; G80.9 Cerebral palsy, unspecified; F33.9 Major depressive disorder, recurrent, unspecified; Z86.718 Personal history of other venous thrombosis and embolism; Z79.899 Other long term (current) drug therapy

== ENCOUNTER → 2020-12-06 | Outpatient (CLI) | payer MEDICARE, MEDICAID ==
[~2020-12-06] MED LIST changes: +XARE10TA PO
== END ==
LOC: M LABSMTC 09:58
PROVIDERS: ATTEND Anesthesiology
DX: Z01.812 Encounter for preprocedural laboratory examination (principal); Z20.822 Contact with and (suspected) exposure to COVID-19

== ENCOUNTER → 2020-12-07 | Outpatient (REF) | payer MEDICARE, MEDICAID ==
[2020-12-07 16:07] LABS: HEMATOCRIT 45.4 % (42.0-52.0); HEMOGLOBIN 14.7 g/dl (13.5-17.5); MEAN CORPUSCULAR HEMOGLOBIN 28.9 pg (27.0-33.0); MEAN CORPUSCULAR HGB CONC 32.4 g/dl (32.0-36.5); MEAN CORPUSCULAR VOLUME 89.4 fl (80.0-96.0); PLATELET COUNT, AUTOMATED 198 10^3/uL (150-450); RED BLOOD COUNT 5.08 10^6/uL (4.30-6.10); WHITE BLOOD COUNT 6.9 10^3/uL (4.0-10.0)
[2020-12-07 16:21] LABS: ALBUMIN 4.2 GM/DL (3.2-5.2); ALT/SGPT 41 U/L (12-78); BILIRUBIN,TOTAL 0.7 MG/DL (0.2-1.0); BLOOD UREA NITROGEN 14 MG/DL (7-18); CALCIUM LEVEL 9.5 MG/DL (8.5-10.1); CARBON DIOXIDE LEVEL 29 MEQ/L (21-32); CHLORIDE LEVEL 107 MEQ/L (98-107); CHOLESTEROL LEVEL 223 MG/DL (<200); CHOLESTEROL RISK RATIO 5.068 (<5); GLOMERULAR FILTRATION RATE > 60.0 (>56); GLUCOSE, FASTING 87 MG/DL (70-100); HDL CHOLESTEROL 44 MG/DL (>40); LDL CHOLESTEROL 165 MG/DL (<100); NON-HDL-C 179 MG/DL; POTASSIUM SERUM 4.8 MEQ/L (3.5-5.1); SODIUM LEVEL 142 MEQ/L (136-145); THYROID STIMULATING HORMONE 0.711 uIU/ML (0.358-3.740); TOTAL PROTEIN 7.1 GM/DL (6.4-8.2); TRIGLYCERIDES LEVEL 71 MG/DL (<150)
[2020-12-07 17:35] LABS: HEMOGLOBIN A1c 5.1 %
== END ==
LOC: M SFHCCLAY 09:52
PROVIDERS: ATTEND Family Medicine
DX: E78.00 Pure hypercholesterolemia, unspecified (principal); Z83.3 Family history of diabetes mellitus; Z86.711 Personal history of pulmonary embolism; Z86.718 Personal history of other venous thrombosis and embolism; Z79.899 Other long term (current) drug therapy

== ENCOUNTER 2020-12-11 09:47 | Day surgery (SDC) | payer MEDICARE, MEDICAID ==
[~2020-12-11] VITALS: Ht 172.7 cm; Wt 102.1 kg
[~2020-12-11 09:47] MED LIST changes: +NS 1,000 ML IV ONE
[2020-12-11] MEDS ORDERED: LIDOCAINE 2% 100MG/5ML SDV (FOR ANES.) As Ordered ONE ×2 (09:53→12:07)
[2020-12-11] MEDS ORDERED: propofoL 200 MG/20 ML VIAL As Ordered ONE (09:53)
--- NOTE | 2020-12-11 11:45 | ROOR ---
Patient Name: Santiago Escalera Procedure Date: 12/11/2020 10:56 AM Date of : 1965 Age: 55 Room: [facility] Gender: Male Note Status: Finalized Procedure: Colonoscopy Indications: High risk colon cancer surveillance: Personal history of colonic polyps, Last colonoscopy: May 2017 Providers: Rory LOPEZ MD Referring MD: David Greenberg MD Requesting Provider: Medicines: Monitored Anesthesia Care Complications: No immediate complications. Procedure: Pre-Anesthesia Assessment: - The heart rate, respiratory rate, oxygen saturations, blood pressure, adequacy of pulmonary ventilation, and response to care were monitored throughout the procedure. The Colonoscope was introduced through the anus and advanced to the cecum, identified by appendiceal orifice and ileocecal valve. The colonoscopy was performed without difficulty. The patient tolerated the procedure well. The quality of the bowel preparation was good. Findings: The perianal and digital rectal examinations were normal. Two sessile polyps were found in the proximal sigmoid colon. The polyps were 5 mm in size. These polyps were removed with a cold snare. Resection and retrieval were complete. To prevent bleeding after the polypectomy, two hemostatic clips were successfully placed. There was no bleeding at the end of the procedure. Internal hemorrhoids were found during retroflexion. The hemorrhoids were medium-sized. The exam was otherwise without abnormality on direct and retroflexion views. Impression: - Two 5 mm polyps in the proximal sigmoid colon, removed with a cold snare. Resected and retrieved. Clips were placed. - Internal hemorrhoids. - The examination was otherwise normal on direct and retroflexion views. Recommendation: - Repeat colonoscopy in 5 years for surveillance. Procedure Code(s): --- Professional --- 39910, Colonoscopy, flexible; with removal of tumor(s), polyp(s), or other lesion(s) by snare technique Diagnosis Code(s): --- Professional --- K64.8, Other hemorrhoids K63.5, Polyp of colon Z86.010, Personal history of colonic polyps CPT copyright 2019 [employer]. All rights reserved. The codes documented in this report are preliminary and upon mimeographer review may be revised to meet current compliance requirements. Rory Lopez MD Rory LOPEZ MD 12/11/2020 11:45:15 AM Electronically signed by Rory LOPEZ MD Number of Addenda: 0 Note Initiated On: 12/11/2020 10:56 AM Estimated Blood Loss: Estimated blood loss: none.
[2020-12-11 12:15] VITALS: BP 167/89
== END 2020-12-11 12:18 | disposition home or self-care (01) ==
LOC: M OPP 09:47
PROVIDERS: ATTEND Internal Medicine Gastroenterology
DX: Z12.11 Encounter for screening for malignant neoplasm of colon (principal); Z86.010 Personal history of colon polyps; Z80.0 Family history of malignant neoplasm of digestive organs; D12.5 Benign neoplasm of sigmoid colon; K64.8 Other hemorrhoids; F41.9 Anxiety disorder, unspecified; G80.9 Cerebral palsy, unspecified; F32.9 Major depressive disorder, single episode, unspecified; F79 Unspecified intellectual disabilities; Z86.711 Personal history of pulmonary embolism; Z79.01 Long term (current) use of anticoagulants; Z79.899 Other long term (current) drug therapy

== ENCOUNTER → 2021-12-13 | Outpatient (REF) | payer MEDICARE, MEDICAID ==
[~2021-12-13] MED LIST changes: -NS 1,000 ML IV ONE
[2021-12-13 16:11] LABS: HEMOGLOBIN 13.6 g/dl (13.5-17.5); MEAN CORPUSCULAR HEMOGLOBIN 28.9 pg (27.0-33.0); MEAN CORPUSCULAR HGB CONC 32.4 g/dl (32.0-36.5); MEAN CORPUSCULAR VOLUME 89.4 fl (80.0-96.0); PLATELET COUNT, AUTOMATED 188 10^3/uL (150-450); WHITE BLOOD COUNT 6.5 10^3/uL (4.0-10.0)
[2021-12-13 16:37] LABS: ALBUMIN 3.8 GM/DL (3.2-5.2); ALT/SGPT 25 U/L (12-78); BILIRUBIN,TOTAL 0.9 MG/DL (0.2-1.0); BLOOD UREA NITROGEN 12 MG/DL (7-18); CALCIUM LEVEL 8.8 MG/DL (8.5-10.1); CARBON DIOXIDE LEVEL 28 MEQ/L (21-32); CHLORIDE LEVEL 109 MEQ/L (98-107); CREATININE FOR GFR 0.91 MG/DL (0.70-1.30); GLOMERULAR FILTRATION RATE > 60.0 (>56); GLUCOSE, FASTING 82 MG/DL (70-100); POTASSIUM SERUM 4.2 MEQ/L (3.5-5.1); SODIUM LEVEL 144 MEQ/L (136-145); TOTAL PROTEIN 6.8 GM/DL (6.4-8.2)
[2021-12-13 17:24] LABS: HEMOGLOBIN A1c 5.1 %
== END ==
LOC: M SFHCCLAY 12:00
PROVIDERS: ATTEND Family Medicine
DX: D68.51 Activated protein C resistance (principal); Z80.0 Family history of malignant neoplasm of digestive organs; Z86.711 Personal history of pulmonary embolism; Z79.01 Long term (current) use of anticoagulants; Z79.899 Other long term (current) drug therapy

== ENCOUNTER 2022-10-09 14:13 | Emergency (ER) | payer MEDICARE, MEDICAID ==
[~2022-10-09] VITALS: Ht 167.6 cm; Wt 90.9 kg
[2022-10-09 14:22] VITALS: BP 143/79
[2022-10-09] MEDS ORDERED: BOOSTRIX/ADACEL VACCINE (DIPHTH/PERTUSS/ACELL/TETANUS) 0.5ML SYR IM.IMMUN ONE (14:25)
== END 2022-10-09 15:31 | disposition home or self-care (01) ==
LOC: EDBD 14:13 → M ED 14:13
DX: S00.91XA Abrasion of unspecified part of head, initial encounter (principal); W10.8XXA Fall (on) (from) other stairs and steps, initial encounter; F32.A Depression, unspecified; Z79.899 Other long term (current) drug therapy; Z79.01 Long term (current) use of anticoagulants; Z79.891 Long term (current) use of opiate analgesic

== ENCOUNTER → 2022-12-17 | Outpatient (REF) | payer MEDICARE, MEDICAID ==
[2022-12-17 17:35] LABS: HEMATOCRIT 44.1 % (42.0-52.0); HEMOGLOBIN 14.6 g/dl (13.5-17.5); MEAN CORPUSCULAR HEMOGLOBIN 29.5 pg (27.0-33.0); MEAN CORPUSCULAR HGB CONC 33.1 g/dl (32.0-36.5); MEAN CORPUSCULAR VOLUME 89.1 fl (80.0-96.0); PLATELET COUNT, AUTOMATED 180 10^3/uL (150-450); RED BLOOD COUNT 4.95 10^6/uL (4.30-6.10)
[2022-12-17 18:15] LABS: ALBUMIN 4.2 G/DL (3.2-5.2); ALKALINE PHOSPHATASE 49 U/L (46-116); ALT/SGPT 15 U/L (7.0-40); AST/SGOT 16 U/L (<34); BILIRUBIN,TOTAL 1.5 MG/DL (0.3-1.2); BLOOD UREA NITROGEN 16 MG/DL (9-23); CALCIUM LEVEL 9.3 MG/DL (8.5-10.1); CARBON DIOXIDE LEVEL 29 MMOL/L (20-31); CHLORIDE LEVEL 106 MMOL/L (98-107); CHOLESTEROL LEVEL 195 MG/DL (<200); CHOLESTEROL RISK RATIO 4.19 (<5); CREATININE FOR GFR 0.92 MG/DL (0.70-1.30); GLOMERULAR FILTRATION RATE > 60.0 (>56); GLUCOSE, FASTING 84 MG/DL (60-100); HDL CHOLESTEROL 46.5 MG/DL (>40); LDL CHOLESTEROL 136.5 MG/DL (<100); NON-HDL-C 149 MG/DL; POTASSIUM SERUM 4.7 MMOL/L (3.5-5.1); SODIUM LEVEL 139 MMOL/L (136-145); TRIGLYCERIDES LEVEL 60 MG/DL (<150)
== END ==
LOC: M SFHCCLAY 11:36
PROVIDERS: ATTEND Family Medicine
DX: Z79.01 Long term (current) use of anticoagulants (principal); Z86.711 Personal history of pulmonary embolism; Z83.3 Family history of diabetes mellitus

== ENCOUNTER 2023-07-06 10:55 | Emergency (ER) | payer MEDICARE, MEDICAID ==
[~2023-07-06] VITALS: Ht 167.6 cm; Wt 89.7 kg
[2023-07-06 14:19] VITALS: BP 134/86; TEMP 99; O2SAT 95
[2023-07-06 14:55] LABS: BASO % 0.4 % (0.0-1.0); EOS % 0.6 % (0.0-3.0); HEMATOCRIT 41.2 % (42.0-52.0); HEMOGLOBIN 13.7 g/dl (13.5-17.5); LYMPH # 1.7 10^3/uL (1.5-5.0); LYMPH % 24.7 % (24.0-44.0); MEAN CORPUSCULAR HEMOGLOBIN 29.7 pg (27.0-33.0); MEAN CORPUSCULAR HGB CONC 33.3 g/dl (32.0-36.5); MEAN CORPUSCULAR VOLUME 89.4 fl (80.0-96.0); MONO # 0.6 10^3/uL (0.0-0.8); MONO % 8.7 % (2.0-8.0); NEUTROPHILS # 4.3 10^3/uL (1.5-8.5); NEUTROPHILS % 65.2 % (36.0-66.0); PLATELET COUNT, AUTOMATED 184 10^3/uL (150-450); RED BLOOD COUNT 4.61 10^6/uL (4.30-6.10); WHITE BLOOD COUNT 6.7 10^3/uL (4.0-10.0)
[2023-07-06 15:12] LABS: INR 1.4; PROTHROMBIN TIME 16.8 SECONDS (12.5-14.5)
[2023-07-06 15:13] LABS: PARTIAL THROMBOPLASTIN TIME 31.1 SECONDS (24.8-34.2)
== END 2023-07-06 15:28 | disposition home or self-care (01) ==
LOC: M ED 10:55
DX: I80.221 Phlebitis and thrombophlebitis of right popliteal vein (principal); F41.9 Anxiety disorder, unspecified; Z86.718 Personal history of other venous thrombosis and embolism; Z79.01 Long term (current) use of anticoagulants; Z79.899 Other long term (current) drug therapy

== ENCOUNTER → 2023-12-10 | Outpatient (REF) | payer MEDICARE, MEDICAID ==
[2023-12-10 12:15] LABS: HEMOGLOBIN A1c 5.1 % (4.0-6.0)
[2023-12-10 12:35] LABS: ALBUMIN 3.8 G/DL (3.2-5.2); ALKALINE PHOSPHATASE 43 U/L (46-116); ALT/SGPT 19 U/L (7.0-40); AST/SGOT 12 U/L (<34); BILIRUBIN,TOTAL 1.1 MG/DL (0.3-1.2); BLOOD UREA NITROGEN 14 MG/DL (9-23); CALCIUM LEVEL 8.3 MG/DL (8.5-10.1); CARBON DIOXIDE LEVEL 29 MMOL/L (20-31); CHLORIDE LEVEL 108 MMOL/L (98-107); CHOLESTEROL LEVEL 187 MG/DL (<200); CHOLESTEROL RISK RATIO 4.23 (<5); CREATININE FOR GFR 0.98 MG/DL (0.70-1.30); GLOMERULAR FILTRATION RATE > 60.0 (>56); GLUCOSE, FASTING 89 MG/DL (60-100); HDL CHOLESTEROL 44.2 MG/DL (>40); LDL CHOLESTEROL 132.6 MG/DL (<100); NON-HDL-C 142.8 MG/DL; POTASSIUM SERUM 4.5 MMOL/L (3.5-5.1); SODIUM LEVEL 143 MMOL/L (136-145); TOTAL PROTEIN 6.4 G/DL (5.7-8.2); TRIGLYCERIDES LEVEL 51 MG/DL (<150)
== END ==
LOC: M SFHCCLAY 08:00
PROVIDERS: ATTEND Family Medicine
DX: Z79.01 Long term (current) use of anticoagulants (principal); Z86.711 Personal history of pulmonary embolism; Z83.3 Family history of diabetes mellitus; D68.51 Activated protein C resistance; Z80.0 Family history of malignant neoplasm of digestive organs; E78.00 Pure hypercholesterolemia, unspecified

== ENCOUNTER → 2024-06-18 | Outpatient (REF) | payer MEDICARE, MEDICAID ==
[~2024-06-18] MED LIST changes: -MIRA1POW3 PO; +MIRA33506 PO
== END ==
LOC: M SFHCCLAY 13:41
PROVIDERS: ATTEND Family Medicine
DX: Z00.00 Encounter for general adult medical examination without abnormal findings (principal); Z79.01 Long term (current) use of anticoagulants; Z86.711 Personal history of pulmonary embolism; R00.0 Tachycardia, unspecified; E78.00 Pure hypercholesterolemia, unspecified; Z83.3 Family history of diabetes mellitus; Z12.5 Encounter for screening for malignant neoplasm of prostate; Z80.0 Family history of malignant neoplasm of digestive organs; D68.51 Activated protein C resistance

== ENCOUNTER → 2024-12-21 | Outpatient (REF) | payer MEDICARE, MEDICAID | LOC: M SFHCCLAY 14:06 | PROVIDERS: ATTEND Nurse Practitioner Family | DX: Z79.01 Long term (current) use of anticoagulants (principal); Z86.711 Personal history of pulmonary embolism; Z80.0 Family history of malignant neoplasm of digestive organs; D68.51 Activated protein C resistance; Z00.00 Encounter for general adult medical examination without abnormal findings; Z12.5 Encounter for screening for malignant neoplasm of prostate; Z83.3 Family history of diabetes mellitus; R00.0 Tachycardia, unspecified; E78.00 Pure hypercholesterolemia, unspecified; Z53.9 Procedure and treatment not carried out, unspecified reason ==

== ENCOUNTER → 2025-06-01 | Outpatient (CLI) | payer MEDICARE, MEDICAID ==
[2025-06-01 14:15] LABS: PLATELET COUNT, AUTOMATED 209 10^3/uL (150-450)
[2025-06-01 14:26] LABS: PSA SCREENING 10.00 NG/ML (< 4.00)
[2025-06-01 14:28] LABS: ALT/SGPT 36 U/L (7.0-40); AST/SGOT 21 U/L (<34); CALCIUM LEVEL 8.8 MG/DL (8.5-10.1); CARBON DIOXIDE LEVEL 28 MMOL/L (20-31); CHLORIDE LEVEL 103 MMOL/L (98-107); CHOLESTEROL LEVEL 209 MG/DL (<200); CHOLESTEROL RISK RATIO 4.73 (<5); CREATININE FOR GFR 0.97 MG/DL (0.70-1.30); GLOMERULAR FILTRATION RATE > 90.0 (>56); LDL CHOLESTEROL 132.3 MG/DL (<100); NON-HDL-C 164.9 MG/DL; POTASSIUM SERUM 4.3 MMOL/L (3.5-5.1); SODIUM LEVEL 144 MMOL/L (136-145); TRIGLYCERIDES LEVEL 163 MG/DL (<150)
[2025-06-01 14:42] LABS: ESTIMATED AVERAGE GLUCOSE 103.0 MG/DL (60-110)
== END ==
LOC: M WUC 12:38
PROVIDERS: ATTEND Nurse Practitioner Family
DX: Z00.00 Encounter for general adult medical examination without abnormal findings (principal); Z79.01 Long term (current) use of anticoagulants; Z86.711 Personal history of pulmonary embolism; Z80.0 Family history of malignant neoplasm of digestive organs; D68.51 Activated protein C resistance; Z12.5 Encounter for screening for malignant neoplasm of prostate; Z85.3 Personal history of malignant neoplasm of breast; R00.0 Tachycardia, unspecified; E78.00 Pure hypercholesterolemia, unspecified; Z79.899 Other long term (current) drug therapy
CPT/HCPCS: 36415; 80053; 80061; 83036; 85027; G0103

== ENCOUNTER → 2025-06-27 | Outpatient (CLI) | payer MEDICARE, MEDICAID | LOC: M WUC 15:46 | PROVIDERS: ATTEND Physician Assistant | DX: R97.20 Elevated prostate specific antigen [PSA] (principal) ==

== ENCOUNTER → 2025-07-28 | Outpatient (CLI) | payer MEDICARE, MEDICAID | LOC: M CLY 10:37 | PROVIDERS: ATTEND Physician Assistant | DX: Z01.818 Encounter for other preprocedural examination (principal) ==

== ENCOUNTER → 2025-07-28 | Outpatient (REF) | payer MEDICARE, MEDICAID ==
[2025-07-28 19:02] LABS: CALCIUM LEVEL 8.6 MG/DL (8.5-10.1); CARBON DIOXIDE LEVEL 24 MMOL/L (20-31); CHLORIDE LEVEL 108 MMOL/L (98-107); CREATININE FOR GFR 0.88 MG/DL (0.70-1.30); GLOMERULAR FILTRATION RATE > 90.0 (>56); POTASSIUM SERUM 4.2 MMOL/L (3.5-5.1); SODIUM LEVEL 141 MMOL/L (136-145)
== END ==
LOC: M LABSMT 10:32
PROVIDERS: ATTEND Physician Assistant
DX: Z01.818 Encounter for other preprocedural examination (principal)

== ENCOUNTER → 2025-08-01 | Outpatient (REF) | payer MEDICARE, MEDICAID ==
[2025-08-01 13:23] LABS: APPEARANCE, URINE CLEAR (CLEAR); BACTERIA, URINE AUTO NEGATIVE (NEGATIVE); BILIRUBIN, URINE AUTO NEGATIVE (NEGATIVE); BLOOD, URINE BLOOD NEGATIVE (NEGATIVE); GLUCOSE, URINE (UA) AUTO NEGATIVE (NEGATIVE); KETONE, URINE AUTO NEGATIVE (NEGATIVE); LEUKOCYTE ESTERASE, URINE AUTO 1+ (NEGATIVE); MUCUS, URINE SMALL (NEGATIVE); NITRITE, URINE AUTO NEGATIVE (NEGATIVE); PROTEIN, URINE AUTO NEGATIVE (NEGATIVE); RBC, URINE AUTO 0 /HPF (0-3); SPECIFIC GRAVITY URINE AUTO 1.014 (1.002-1.035); SQUAMOUS EPITHELIAL CELL UR AU 0 /HPF (0-6); UROBILINOGEN, URINE AUTO 0.2 mg/dL (0.0-2.0); WBC, URINE AUTO 11 /HPF (0-3)
== END ==
LOC: M SMT 11:49
PROVIDERS: ATTEND Physician Assistant
DX: Z01.818 Encounter for other preprocedural examination (principal)

== ENCOUNTER 2025-08-10 09:21 | Day surgery (SDC) | payer MEDICARE, MEDICAID ==
[~2025-08-10] VITALS: Ht 180.3 cm; Wt 100.5 kg
[2025-08-10 10:02] LABS: PLATELET COUNT, AUTOMATED 202 10^3/uL (150-450)
[2025-08-10] MEDS ORDERED: LIDOCAINE 2% 100 MG/5 ML SDV (FOR ANES.) As Ordered ONE (10:32)
[2025-08-10] MEDS ORDERED: MIDAZOLAM INJ 2 MG/2 ML VIAL As Ordered ONE (10:33)
[2025-08-10] MEDS ORDERED: LR 1,000 ML IV SCH (10:40)
[2025-08-10] MEDS: ceFAZolin SOD 2 GM IV ONCE IV ONE (11:07)
[2025-08-10 12:00] VITALS: BP 120/80; TEMP 96.9; O2SAT 94
== END 2025-08-10 12:15 | disposition home or self-care (01) ==
LOC: M SDC 09:21
PROVIDERS: ATTEND Urology
DX: C61 Malignant neoplasm of prostate (principal); D68.51 Activated protein C resistance; G80.9 Cerebral palsy, unspecified; Z79.01 Long term (current) use of anticoagulants; E78.00 Pure hypercholesterolemia, unspecified; Z79.899 Other long term (current) drug therapy; Z86.711 Personal history of pulmonary embolism
CPT/HCPCS: 36415; 55700; 76872; 85027; G0416; J0688; J2250; J3010